=== PATIENT | male | born 1975 ===

== ENCOUNTER 2019-11-18 07:36 | Outpatient (RCR) | payer BC, SELFPAY ==
--- NOTE | 2019-11-18 09:15 | PTOPEVAL ---
INITIAL PHYSICAL THERAPY EVALUATION and PLAN OF CARE Thank you for referring Otis to [facility] Please review, sign, date and return this plan of care MARIE. He will be seen in PT 1x/wk x 4 wks. I agree with and certify that the following plan of care is medically necessary. Referring Physician Date Admitting Provider: Attending Provider: PHYSICIAN NOT ON STAFF Referring Provider: *PT Outpatient Evaluation Start: 11/18/19 07:58 Freq: Status: Active Protocol: Document 11/18/19 07:59 BRENDA (Rec: 11/18/19 09:15 BRENDA [id number]) Therapy Assessment Status Assessment Status Assessment Status Evaluation Outpatient Past Medical History Neurological History Hx Neurological Disorders No Significant History Cardiovascular History Hx Cardiac Disorders No Significant History Respiratory History Hx Respiratory Disorders No Significant History Gastrointestinal History Hx Gastrointestinal Disorders No Significant History Genitourinary History Hx Other Genitourinary Disorders Yes: pelvic floor dysfunction Musculoskeletal History Hx Other Musculoskeletal Disorders Yes: R shoulder surgeries x3,L foot surgeries x3 Endocrine History Hx Endocrine Disorders No Significant History Evaluation Information Problem Diagnosis pelvic floor dysfunction Onset ~ 6 month ago Subjective Information 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 About Family 6 months ago - when drinking water - ~ 30 minutes later, would have to urinate - difficulty with controlling. Would not happen with [employer]. Fecal smearing occurred about 2 months ago - almost gone. Mainly concerned with the retrograde ejaculation. No difficulty with urination. As a mailman - up, down all of the time Diagnostic Tests Other Tests For This Problem Yes: ultrasound - all is well Prior Level of Function Activity Level (Last 3 Months) Occupation mailmain Hand Dominance Right Medications Home Meds (Include: OTC, RX, Vitamins, ibuprofen - prn Herbals, Dose, Route,and Frequency) Query Text:Home Med Entries Will No Longer Recall From Past Visits. Home Meds Must Be Re-entered With Each Visit. Home Setting Home Type House,Multiple Levels Environmental Barriers Stairs, Greater than 4 Living Situation With Minor Child,With Spouse Comments Additional Prior Level of F
--- NOTE | 2019-12-02 07:30 | PCPTNOTE ---
PHYSICAL THERAPY DISCHARGE NOTE Admitting Provider: Attending Provider: PHYSICIAN NOT ON STAFF Patient:Otis Whitehead Date of :1975 Otis called to cancel all of his appointments due to finding a facility closer to his home and one that can work around his work schedule. Therefore he will be discharged from physical therapy at this time. He was only seen for his initial visit. Thank you [facility]. Please review, sign, date and return this discharge summary MARIE. I have been updated about Otis's current status and I agree with discharge from the above service at this time. Referring Physician Date
== END 2019-12-02 08:44 | disposition home or self-care (01) ==
LOC: ANHPT 07:36
DX: M62.89 Other specified disorders of muscle (principal)
CPT/HCPCS: 97140; 97161